=== PATIENT | male | born 2000 | race Caucasian/White ===

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

== ENCOUNTER → 2023-03-25 | Outpatient (CLI) | payer OTHER, SELFPAY ==
--- NOTE | 2023-03-25 | LES_PTH ---
PATIENT: EDD AMADO [facility] U#:[id number] AGE/SX: 22/M ROOM: RE03/25/[address]: Dr. Baldomero Bunn MD : 2000 BED: DIS: 03/25/2023 SPEC #: [id number] RECD: 03/25/23 15:20 STATUS: CHRISTIAN BRIA #: [id number] YI: 03/25/23 00:[address]: Baldomero Bunn DEPT: SURGICAL PATHOLOGY RECD BY: Jimi Crandall Tissues: Skin of upper extremity and shoulder Procedures: Surgery Specimen Level IV HEADER OPERATION: Left shoulder excision PRE-OP DIAGNOSIS: Nevus TISSUE SUBMITTED: Left shoulder excision MICROSCOPIC DIAGNOSIS Skin lesion of left shoulder, excision: Intradermal nevus with congenital features. AM:matthieu 03/29/2023 MICROSCOPIC DESCRIPTION Slides are reviewed. GROSS DESCRIPTION Received in fixative is one container labeled with the patient's name and designated left shoulder. The specimen consists of a light stanley excised fragment of skin measuring 1.5 x 1.0 cm and a depth of excision measuring 1.2 cm. The specimen is inked, serially sectioned and submitted entirely in one cassette. / AM:matthieu 03/26/2023 TC:5 CPT: 18829
== END | disposition home or self-care (01) ==
LOC: LABSPEC 15:08
PROVIDERS: PCP Family Medicine; Referring Provider Family Medicine; Visit Provider Family Medicine
DX: D22.62 Melanocytic nevi of left upper limb, including shoulder (principal)
CPT/HCPCS: 88305

== ENCOUNTER → 2024-07-10 | Outpatient (CLI) | payer OTHER, SELFPAY | END | disposition home or self-care (01) | LOC: MFPLAB 12:18 | PROVIDERS: PCP Family Medicine; Referring Provider Family Medicine; Visit Provider Family Medicine | DX: E03.1 Congenital hypothyroidism without goiter (principal) | CPT/HCPCS: 36415; 84439; 84443 ==